=== PATIENT | female | born 1960 | race Caucasian/White ===

== ENCOUNTER 2018-06-10 12:20 | Emergency (ER) | payer MEDICAID, OTHER ==
[~2018-06-10] VITALS: Ht 160 cm; Wt 61.4 kg
[~2018-06-10 12:20] MED LIST: PANT-47 PO
[2018-06-10 12:23] VITALS: BP 145/76
[2018-06-10] MEDS ORDERED: TRAM50TA2 PO (12:45)
[2018-06-10] MEDS ORDERED: traMADol 50MG tablet PO ONE (12:50)
== END 2018-06-10 13:05 | disposition home or self-care (01) ==
LOC: ER 12:21
DX: M25.561 Pain in right knee (principal); Z98.890 Other specified postprocedural states; Z87.891 Personal history of nicotine dependence
CPT/HCPCS: 73564; 99283

== ENCOUNTER 2019-09-13 19:24 | Emergency (ER) | payer MEDICAID ==
[~2019-09-13] VITALS: Ht 160 cm; Wt 63.6 kg
--- NOTE | 2019-09-13 19:36 | NUR ---
SPOKE WITH FORTE PA ABOUT PT STATED COMPLAINT. STATED TO ORDER CHEST XRAY AND EKG ONLY. ORDER PLACED.
[2019-09-13 20:45] VITALS: BP 125/75
--- NOTE | 2019-09-13 21:38 | NUR ---
Pt was assessed by MD. pt left without signing discharge instructions
== END 2019-09-13 21:42 | disposition home or self-care (01) ==
LOC: ER 19:25
DX: F41.9 Anxiety disorder, unspecified (principal); R06.02 Shortness of breath; R11.0 Nausea; I10 Essential (primary) hypertension; J45.909 Unspecified asthma, uncomplicated; G89.29 Other chronic pain; F17.200 Nicotine dependence, unspecified, uncomplicated; F12.90 Cannabis use, unspecified, uncomplicated; Z87.440 Personal history of urinary (tract) infections; Z98.890 Other specified postprocedural states; Z72.89 Other problems related to lifestyle; Z79.899 Other long term (current) drug therapy
CPT/HCPCS: 71045; 93005; 99283